=== PATIENT | female | born 1950 | race Caucasian/White ===

== ENCOUNTER 2016-08-12 17:27 | Emergency (ER) | payer OTHER, MEDICARE ==
[~2016-08-12] VITALS: Ht 167.6 cm; Wt 83.6 kg
[~2016-08-12 17:27] MED LIST: CALCIUM +D & M1 EACH PO; CHILDREN'S CHE1 EACH PO; KEFLEX500 MG PO; MAGNESIUM250 MG PO; PRILOSEC20 MG PO; PYRIDIUM200 MG PO; RED YEAST RICE600 MG PO
[2016-08-12 18:27] LABS: EOSINOPHIL (%) 2.1 % (0-5); EOSINOPHIL COUNT 0.2 K/uL (0-0.3); IMMATURE GRANULOCYTE (%) 0.2 % (0.0-0.7); IMMATURE GRANULOCYTE COUNT 0.2 K/uL; LYMPHOCYTE COUNT 2.5 K/uL (1.0-2.8); MCH 27.3 PG (29.0-34.0); MCHC 32.8 G/DL (30.0-36.0); MCV 83.3 FL (83-99); MEAN PLAT.VOLUME 12.4 uM^3 (9.5-12.4); MONOCYTE (%) 6.7 % (3-12); MONOCYTE COUNT 0.7 K/uL (0-0.8); NEUTROPHIL (%) 65.3 % (45-76); NEUTROPHIL COUNT 6.3 K/uL (1.8-6.4); PLATELET COUNT 247 K/uL (156-360); RBC DIS.WIDTH-CV 14.8 % (11.8-14.6); RBC DIS.WIDTH-SD 44.1 % (39-53); WHITE BLOOD COUNT 9.6 K/uL (4.1-10.2)
[2016-08-12 18:40] LABS: CHLORIDE 108 mEq/L (99-109); SODIUM 143 mEq/L (136-147)
[2016-08-12 18:41] LABS: GLUCOSE 124 mg/dL (70-99)
[2016-08-12 18:43] LABS: ANION GAP 12 MEQ/L (2-14)
[2016-08-12 18:45] LABS: GFR ESTIMATE (CALCULATED) > 59 mL/min/
[2016-08-12 18:46] LABS: UREA NITROGEN (BUN) 17 mg/dL (9-23)
[2016-08-12 18:48] LABS: TROP-I INTERPRETATION NEGATIVE; TROPONIN-I 0.01 ng/mL (0.0-0.30)
[2016-08-12] MEDS ORDERED: PROTONIX40 MG PO (19:51)
[2016-08-12 20:01] VITALS: BP 135/90
== END 2016-08-12 20:28 | disposition home or self-care (01) ==
LOC: EME 17:27
PROVIDERS: Emergency Medicine
DX: K22.4 Dyskinesia of esophagus (principal); R07.9 Chest pain, unspecified; R05 Cough
CPT/HCPCS: 71010; 80048; 84484; 85025; 93005; 99281; 99285; J2405; J7030

== ENCOUNTER 2017-01-03 22:05 | Emergency (ER) | payer OTHER, MEDICARE ==
[~2017-01-03] VITALS: Ht 167.6 cm; Wt 82.7 kg
[~2017-01-03 22:05] MED LIST changes: +PROTONIX40 MG PO
[2017-01-03 23:12] LABS: HEMATOCRIT 38.6 % (36.0-46.0); MCH 26.5 PG (29.0-34.0); MCHC 31.6 G/DL (30.0-36.0); MCV 83.9 FL (83-99); MEAN PLAT.VOLUME 12.2 uM^3 (9.5-12.4); PLATELET COUNT 230 K/uL (156-360); RBC DIS.WIDTH-CV 15.5 % (11.8-14.6); RBC DIS.WIDTH-SD 47.2 % (39-53); WHITE BLOOD COUNT 9.2 K/uL (4.1-10.2)
[2017-01-03 23:24] LABS: CHLORIDE 109 mEq/L (99-109); POTASSIUM 3.9 mEq/L (3.7-5.4); SODIUM 143 mEq/L (136-147)
[2017-01-03 23:26] LABS: GLUCOSE 113 mg/dL (70-99)
[2017-01-03 23:27] LABS: ANION GAP 12 MEQ/L (2-14)
[2017-01-03 23:30] LABS: GFR ESTIMATE (CALCULATED) > 59 mL/min/
[2017-01-03 23:31] LABS: UREA NITROGEN (BUN) 27 mg/dL (9-23)
[2017-01-04 01:16] LABS: TROP-I INTERPRETATION NEGATIVE; TROPONIN-I < 0.01 ng/mL (0.0-0.30)
[2017-01-04 01:51] LABS: ADD MIUA? YES; BILIRUBIN NEGATIVE; BLOOD NEGATIVE; COLOR YELLOW ((YELLOW)); GLUCOSE (STRIP) 50; KETONES NEGATIVE; LEUKOCYTES TRACE; NITRITE NEGATIVE; PROTEIN (STRIP) 30; SPECIFIC GRAVITY 1.026 (1.000-1.030); UROBILINOGEN 0.2 MG/DL (0.2-1.0)
[2017-01-04 02:01] LABS: BACTERIA NONE SEEN /HPF; EPITHELIAL CELLS RARE /HPF; MUCUS TRACE /LPF; RED BLOOD CELLS 0-5 /HPF (0-5); UCUL ADDED? NO
[2017-01-04] MEDS ORDERED: TYLENOL WITH C1 EACH PO (02:25)
[2017-01-04 02:38] VITALS: BP 115/74
== END 2017-01-04 02:39 | disposition home or self-care (01) ==
LOC: EME 22:05
PROVIDERS: Emergency Medicine
DX: S09.90XA Unspecified injury of head, initial encounter (principal); S00.81XA Abrasion of other part of head, initial encounter; W18.30XA Fall on same level, unspecified, initial encounter; K21.9 Gastro-esophageal reflux disease without esophagitis; I48.91 Unspecified atrial fibrillation; J45.909 Unspecified asthma, uncomplicated
CPT/HCPCS: 70450; 70486; 71020; 72125; 80048; 81003; 84484; 85025; 85027; 93005; 99281; 99285